=== PATIENT | female | born 1990 | race Two or more races ===

== ENCOUNTER → 2021-03-30 | Outpatient (CLI) | payer OTHER ==
--- NOTE | 2021-04-01 19:16 | US ---
EXAMINATION TYPE: US liver DATE OF EXAM: 03/30/2021 COMPARISON: NONE CLINICAL HISTORY: 30-year-old female Elevation of levels of liver transaminase l R74.01. TECHNIQUE: Multiple sonographic images of the right upper quadrant are obtained. FINDINGS: EXAM MEASUREMENTS: Liver Length: 19.0 cm Gallbladder Wall: 0.3 cm CBD: 0.4 cm Right Kidney: 11.5 x 4.8 x 5.4 cm Grant Coordinator notes:technical limitations due to patient's body habitus and large amount of overlying bowel content Pancreas: Limited visualization of the pancreatic body. The remainder of the pancreas is obscured by bowel gas shadowing. Liver: enlarged, echogenic, and markedly attenuating. The secondary limits assessment for focal lesi ons. Gallbladder: no evidence of stones Evidence for sonographic Khoury's sign: no CBD: The limited visualized portion appears normal caliber. Right Kidney: no evidence of hydronephrosis IMPRESSION: 1. Limitation due to bowel gas and large patient body habitus. 2. Mild hepatomegaly (19.0 cm) with severe hepatic steatosis. This secondarily limits assessment for focal lesions. 3. No gallstones or biliary ductal dilatation.
== END | disposition home or self-care (01) ==
LOC: RADUSWWP 16:11
PROVIDERS: ATTEND Internal Medicine
DX: K76.0 Fatty (change of) liver, not elsewhere classified (principal); R16.0 Hepatomegaly, not elsewhere classified
CPT/HCPCS: 76705